=== PATIENT | male | born 1975 | race Caucasian/White ===

== ENCOUNTER 2020-09-16 08:10 | Emergency (ER) | payer MEDICAID, SELFPAY ==
[2020-09-16 08:16] VITALS: BP 100/61; PULSE 87; RESP 14; O2SAT 97; BMI 38.2
--- NOTE | 2020-09-16 08:20 | XR_ITS ---
WS: [id number] Exam: XR ribs LT mn 3V w CXR1V [id number] Date/Time of Exam: 09/16/2020 8:20 AM Reason For Exam: pain/cough No acute rib fracture or pneumothorax. The lungs are fully expanded. Unremarkable cardiomediastinal s tructures. No pleural effusions. XR/XR ribs LT mn 3V w CXR1V [id number] IMPRESSION: 1. No acute left rib fracture or pneumothorax.
--- NOTE | 2020-09-16 08:21 | ED_ITS ---
HPI - Chest Pain General: Chief Complaint: Upper Respiratory Infection Stated Complaint: CP COUGH Time Seen by Provider: 09/16/20 08:11 Source: patient Mode of arrival: ambulatory Limitations: no limitations History of Present Illness: HPI narrative: Patient is a 45-year-old male who presents to ED today with a complaint of left-sided chest wall pain that began 2 days ago. He states approximately 3 days ago he began developing a cough. He states during one of the coughing episodes he noticed a sharp pain to his left anterior chest wall and since that time he has had pain to that area anytime he coughs and with certain movements. He states when he is not coughing he does not have any discomfort. He denies any radiation to his pain. No nausea, vomiting, diaphoresis, shortness of breath, difficulty breathing. Denies previous cardiac or pulmonary history MD complaint: chest pain Onset (ago): day(s) Timing of current episode: episodic Prior episodes: No Onset: other (only with coughing) Pain location: left chest Pain radiation: none Severity: moderate Quality: sharp Relieving factors: other (not coughing) Exacerbating factors: other (coughing) Associated symptoms: Reports no associated symptoms; Deny abdominal pain, dyspnea, fever(s), nausea, palpitations, syncope or vomiting Treatment prior to arrival: none Risk Factors: Coronary artery disease risk factors: hypertension Thoracic aortic dissection risk factors: none Review of Systems Const: Denies: fever(s), chills, body aches, fatigue or malaise Card: Reports: chest pain (chest wall pain); Denies: palpitations, irregular heart rhythm, edema, swelling of feet/ankles, lightheadedness, syncope, pre-syncope, dyspnea on exertion or orthopnea Resp: Reports: non-productive cough and chest congestion; Denies: dyspnea, wheezing, stridor or hemoptysis GI: Denies: abdominal pain, nausea, vomiting or diarrhea : Denies: flank pain Musc: Denies: neck pain, back pain, extremity pain or joint pain Skin/Breast: Denies: rash Neuro: Denies: headache(s), numbness in extremities, weakness in extremities, sensory changes or dizziness Physical Exam Const: COMMON NORMALS: no acute distress, patient oriented x3, no limitations and alert NUTRITIONAL APPEARANCE: obese morbidly obese ORIENTATION/CONSCIOUSNESS: Yes awake, Yes oriented to person, Yes oriented to p lace and Yes oriented to time HENMT: COMMON NORMALS: normocephalic and atraumatic HEAD & SCALP: normocephalic and atraumatic Chest: COMMONS NORMALS: normal inspection of the chest Chest images (male): 1. palpation of L lower anterior ribs directly reproduces pts pain Resp: COMMON NORMALS: normal respiratory effort and clear to auscultation bilaterally AUSCULTATION: clear to auscultation bilaterally Cardio: COMMON NORMALS: regular rate and regular rhythm RATE: regular rate RHYTHM: regular rhythm GI: COMMON NORMALS: Normal to inspection, nondistended, normoactive bowel sounds present, Soft to palpation, non-tender, No hepatosplenomegaly present and no masses INSPECTION: Yes other (large ventral hernia-chronic; no incarceration/strangulation) AUSCULTATION: Yes normoactive bowel sounds PALPATION: Yes Soft to palpation and Yes No hepatosplenomegaly present Neuro: COMMON NORMALS: patient oriented x3 SENSORIUM/ORIENTATION: Yes alert, Yes oriented to person, Yes oriented to place and Yes oriented to time Skin: COMMON NORMALS: no rashes or lesions noted GENERAL SKIN EXAM: no rashes or lesions noted TRAUMA: no lacerations or abrasions Course Vital Signs: Vital signs: Vital Signs Pulse Rate 85 09/16/20 09:04 Respiratory Rate 18 09/16/20 09:04 Blood Pressure 157/106 09/16/20 09:04 Pulse Oximetry 97 09/16/20 09:04 MDM - Chest Pain MDM Narrative: Medical decision making narrative: Pain is easily reproduced with palpation of his L anterior chest wall. He reports no pain except with coughing and certain movements. EKG normal. CXR/L ribs normal. He is requesting something to help with cough. Will treat chest wall strain with NSAIDS. Noted to be hypertensive here. Reports hx of this but states he hasn't been on medications since he lost his insurance. Will place him on 10mg lisinopril and recommend BP log and followup with [facility] and they can adjust meds f rom there. Imaging Data^: CXR/L ribs: Radiologist's impression: [address] [place] [address] XRay Report Signed Patient: Delio Grimm Janelle Unit #: [id number] : 1975 [id number] Age/Sex: 45 / M ADM Date: 09/16/20 Loc: ER Room/Bed: Attending Dr: Ordering Provider/Ordering MD: Erma Estrella Date of Service: 09/16/20 Procedure(s): XR ribs LT mn 3V w CXR1V [id number] Accession Number(s): [id number] Report Number: [id number] WS: [id number] Exam: XR ribs LT mn 3V w CXR1V [id number] Date/Time of Exam: 09/16/2020 8:20 AM Reason For Exam: pain/cough No acute rib fracture or pneumothorax. The lungs are fully expanded. Unremarkable cardiomediastinal structures. No pleural effusions. XR/XR ribs LT mn 3V w CXR1V [id number] IMPRESSION: 1. No acute left rib fracture or pneumothorax. Dictated By: Sb Pineda DO Signed By: Sb Pineda DO Signed Date/Time: 09/16/20858 DD/ EKG Data^: EKG 1: EKG interpretation date: 09/16/20 EKG interpretation time: 08:19 Interpretation: Sinus rhythm Rate [address] elevation or depression changes noted Discharge Plan Discharge Patient Disposition: Home Clinical Impression: Strain of chest wall Qualifiers: Encounter type: initial encounter Qualified Code(s): S29.011A - Strain of muscle and tendon of front wall of thorax, initial encounter Hypertension Qualifiers: Hypertension type: essential hypertension Qualified Code(s): I10 - Essential (primary) hypertension Condition: Stable Prescriptions: New diclofenac sodium 50 mg tablet,delayed release (DR/EC) 50 mg PO Q12H PRN (Reason: pain) Qty: 20 RF: 0 lisinopril 10 mg tablet 10 mg PO DAILY Qty: 30 RF: 0 promethazine-codeine 6.25-10 mg/5 mL syrup 5 ml PO Q6H PRN (Reason: cough) Qty: 118 RF: 0 Discharge Orders: Discharge ED (Routine); Ordered 09/16/20 Ordered By: Erma Estrella Activity Restrictions/Additional Instructions: You may return to the emergency department for worsening or uncontrollable pain, difficulty breathing, shortness of breath, lightheadedness/dizziness, or any other concerns you may have. Please follow-up with primary care for further evaluation and control of your high blood pressure. 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
[2020-09-16 08:24] VITALS: BP 200/130; PULSE 84; RESP 18; O2SAT 96
[2020-09-16] MEDS: ketorolac 60 mg/2 mL INJ IM (09:02)
--- NOTE | 2020-09-16 09:02 | ECG_ITS ---
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 Measurements Intervals [place] Rate: 81 P: 46 [place]: 169 QRS: 26 QRSD: 96 T: 36 QT: 353 QTc: 410 Interpretive Statements SINUS RHYTHM No previous ECG available for comparison Electronically Signed On 09-16-2020 16:21:21 CDT by Jose Daniel Torrez M.D. [id number]
[2020-09-16 09:04] VITALS: BP 157/106; PULSE 85; RESP 18; O2SAT 97
== END 2020-09-16 09:20 | disposition home or self-care (01) ==
PROVIDERS: Emergency Provider Physician Assistant
DX: S29.012A Strain of muscle and tendon of back wall of thorax, initial encounter (principal); X58.XXXA Exposure to other specified factors, initial encounter; I10 Essential (primary) hypertension
CPT/HCPCS: 71101; 93005; 96372; 99283; J1885